=== PATIENT | female | born 1960 | race Caucasian/White ===

== ENCOUNTER 2018-12-23 11:14 | Emergency (ER) | payer OTHER ==
[~2018-12-23] VITALS: Ht 162.5 cm; Wt 65.8 kg
[2018-12-23] MEDS ORDERED: IBUPROFEN600 MG PO (13:29)
[2018-12-23] MEDS ORDERED: ROBAXIN-750750 MG PO (13:29)
== END 2018-12-23 13:41 | disposition home or self-care (01) ==
LOC: ED 11:14
DX: S53.402A Unspecified sprain of left elbow, initial encounter (principal); S13.9XXA Sprain of joints and ligaments of unspecified parts of neck, initial encounter; K21.9 Gastro-esophageal reflux disease without esophagitis; E78.5 Hyperlipidemia, unspecified; M79.7 Fibromyalgia; Z88.0 Allergy status to penicillin; W01.0XXA Fall on same level from slipping, tripping and stumbling without subsequent striking against object, initial encounter; Y93.89 Activity, other specified; Y92.89 Other specified places as the place of occurrence of the external cause; Y99.8 Other external cause status